=== PATIENT | male | born 1995 | race Caucasian/White ===

== ENCOUNTER 2017-01-07 11:50 | Emergency (ER) | payer OTHER ==
--- NOTE | ~2017-01-07 | ER ---
PATIENT'S NAME: VENITA HEIN [facility] AGE: 21 Y [address] ROOM: [place] [address] LOCATION: [facility] ADMIT DATE: 01/07/2017 ER/Outpatient Report DISCHARGE DATE: 01/07/2017 FAMILY PHYSICIAN: Bogdan Wade MD ATTENDING PHYSICIAN: Phuc Arvizu Time of Arrival: 1150 hours. Time of Evaluation: 1150 hours. CHIEF COMPLAINT: Fall. HISTORY OF PRESENT ILLNESS: The patient is a 21-year-old male, who presents to the emergency department today with a chief complaint of fall. He reports it occurred prior to arrival at [place]. The patient was transferred from [place] for higher level of care. The patient slipped off a trailer and dislocated and fractured his ankle. He is sent here for reduction and further care. Per EMS, the patient has received 350 mcg of fentanyl as well as 10 mg of Valium IV. He does report it is 10/10 in severity. Pain is sharp. PAST MEDICAL HISTORY: Obstructive sleep apnea, GERD. PAST SURGICAL HISTORY: None. SOCIAL HISTORY: The patient denies any tobacco, alcohol, or illicit drug use. ALLERGIES: NO KNOWN DRUG ALLERGIES. MEDICATIONS: Acid reflux medication. REVIEW OF SYSTEMS: All systems are reviewed by myself and are negative with the exception of those discussed in the HPI and past medical history. PHYSICAL EXAMINATION: VITAL SIGNS: Temperature 99.4, blood pressure 133/64, pulse 86, oxygen saturation 100% on room air. GENERAL: The patient is a 21-year-old male, who appears his stated age, in mild to moderate acute distress. PATIENT'S NAME: VENITA HEIN [facility] AGE: 21 Y [address] ROOM: [place], [place] [address] LOCATION: [facility] ADMIT DATE: 01/07/2017 ER/Outpatient Report DISCHARGE DATE: 01/07/2017 FAMILY PHYSICIAN: Bogdan Wade MD ATTENDING PHYSICIAN: Phuc Avrizu HEENT: Head: Normocephalic, atraumatic. Pupils are equal, round, and reactive to light. Nares are patent bilaterally. Oropharynx is clear. NECK: Supple. There is no midline tenderness to palpation. CARDIOVASCULAR: Regular rate and rhythm. No murmurs, rubs, or gallops. LUNGS: Clear to auscultation bilaterally. No wheezes, rales, or rhonchi. ABDOMEN: Soft, nontender, and nondistended. No rebound, rigidity, or guarding. MUSCULOSKELETAL: The patient moves all 4 extremities. He does have obvious deformity noted to the right ankle. He does have a 2/4 DP pulse on the right. He has 1/4 posterior tibial on the right ankle. SKIN: Warm and dry. LABORATORY DATA AND X-RAYS: X-ray is reviewed from outlying facility. It does show a fibular fracture with ankle dislocation of the right. Post reduction films are obtained and reviewed by myself. It does show reduction of the ankle dislocation with a fracture through the lateral malleolus and posterior malleolus. The medial malleolus appears without fracture. There is widening at the ankle mortise on the medial aspect. IMPRESSION: 1. Acute closed right bimalleolar fracture dislocation, status post reduction. 2. Initial visit. EMERGENCY DEPARTMENT COURSE: The patient was brought back to the examination room. Seen and evaluated by myself. An IV had been established prior to arrival. Anesthesia was contacted and provided sedation with propofol. Prior to that, risks and benefits had been discussed with the patient. His questions were answered. This was performed by myself. The sedation was performed. The ankle was reduced with accentuation of the fracture and longitudinal traction and audible pop was noted. The alignment was restored. The patient had 2/4 pulses DP and PT. Cap refill is less than 2 seconds. A stirrup and posterior splint were applied by myself. This was well padded. The patient's cap refill remained less than 2 seconds after application. His pain was significantly improved after reduction. Post reduction films were ordered, and I have reviewed these films. I have discussed results with the patient. I have contacted Dr. Crews, the orthopedic surgeon on-call for trauma. He has reviewed the films. He will see the patient in his clinic now to schedule surgery sometime this week. I have written a prescription for [place] with sedation warning, dispensing #20. The patient's questions are answered. His mother is at the bedside. Her questions are answered. They are without further questions at this time. PATIENT'S NAME: VENITA HEIN [facility] AGE: 21 Y [address] ROOM: [place], [place] [address] LOCATION: [facility] ADMIT DATE: 01/07/2017 ER/Outpatient Report DISCHARGE DATE: 01/07/2017 FAMILY PHYSICIAN: Bogdan Wade MD ATTENDING PHYSICIAN: Phuc Arvizu DISPOSITION: The patient is discharged to home in good condition with instructions and will proceed directly to Dr. Crews' office. DO ERICK HOOD/srinivasa /[id number] d: 01/07/17 2119 t: 01/08/17 0758, OUTPATIENT REPORT
[2017-01-08] MEDS ORDERED: PRILOSEC20 MG PO (13:56)
[2017-01-08] MEDS ORDERED: HYDROCODON-ACE1 EAC2 PO (13:57)
[2017-01-08] MEDS ORDERED: ZOFRAN8 M1 PO (14:05)
[2017-01-08] MEDS ORDERED: PERCOCET 5-3251 EACH PO (14:07)
== END 2017-01-07 13:19 | disposition disaster alternative care site (69) ==
LOC: EDBD 11:50 → GACC 11:50
PROC: 0QSJXZZ Reposition Right Fibula, External Approach (ICD-10-PCS; principal; 2017-01-07)
DX: S82.841A Displaced bimalleolar fracture of right lower leg, initial encounter for closed fracture (principal); W01.0XXA Fall on same level from slipping, tripping and stumbling without subsequent striking against object, initial encounter
CPT/HCPCS: J7030

== ENCOUNTER 2017-01-09 07:49 | Day surgery (SDC) | payer OTHER ==
[~2017-01-09] VITALS: Ht 180.3 cm; Wt 116.8 kg
--- NOTE | ~2017-01-09 | OR ---
PATIENT'S NAME: VENITA HEIN [facility] AGE: 21 Y [address] ROOM: [place] [address] LOCATION: [facility] ADMIT DATE: 01/09/2017 OR/Procedure Report DISCHARGE DATE: 01/09/2017 FAMILY PHYSICIAN: Bogdan Wade MD ATTENDING PHYSICIAN: Berto Crews SURGEON: Berto Crews MD CHEMICAL INSTRUMENTATION OFFICER: Catracho Plasencia PA-C. DATE OF PROCEDURE: 01/09/2017 PREOPERATIVE DIAGNOSIS: Right trimalleolar ankle fracture dislocation with syndesmosis disruption. POSTOPERATIVE DIAGNOSIS: Right trimalleolar ankle fracture dislocation with syndesmosis disruption. PROCEDURE: 1. Open reduction and internal fixation of right trimalleolar fracture of the ankle. 2. Open reduction and internal fixation of right syndesmosis. 3. Use of intraoperative fluoroscopy, less than 1 hour. ANESTHESIA: General endotracheal anesthesia and peripheral nerve block. FLUIDS: See Anesthesia report. EBL: Minimal. TOURNIQUET: Right proximal thigh, 300 mmHg. SPECIMEN: None. COMPLICATIONS: None. DISPOSITION: Stable in PACU. COUNTS: All counts correct. IMPLANTS: Synthes right fibular periarticular locking plate and screws and Arthrex syndesmosis TightRope fixation. INDICATIONS: Mr. Hein is a pleasant 21-year-old gentleman who underwent the noted procedures above. The risks, benefits, and alternatives of pursuing a surgical intervention were discussed with the patient in detail. I marked the right lower extremity indicating the correct surgical site. Anesthesia was consulted for their perioperative evaluation of the patient. PATIENT'S NAME: VENITA HEIN [facility] AGE: 21 Y [address] ROOM: [place] [address] LOCATION: [facility] ADMIT DATE: 01/09/2017 OR/Procedure Report DISCHARGE DATE: 01/09/2017 FAMILY PHYSICIAN: Bogdan Wade MD ATTENDING PHYSICIAN: Berto Crews OPERATIVE REPORT IN DETAIL: The patient was taken from the holding area to the operating room. A time-out was performed. General endotracheal anesthesia was administered. The patient was positioned supine on the operating room table, and a nonsterile tourniquet was placed on the right proximal thigh over Webril and U-drapes placed beneath it. A bone foam was placed under the leg with a bump under the hip. The right lower extremity was then prepped and draped in a sterile fashion. I turned my attention to the ankle. There was ecchymosis present and it was subluxated laterally. An Esmarch was used to exsanguinate the limb, and the tourniquet was inflated to 250 mmHg. I began by introducing intraoperative fluoroscopy. I began with a lateral incision through skin and subcutaneous tissue. I identified the fibula in the posterior malleolus. The fibula fracture was oblique, shortened, and there was evidence of syndesmosis disruption. With my PA holding traction on the ankle, I used [id number]-[id number] clamps to reduce the posterior malleolus of the distal tibia and distal fibula. I drilled for a 3.5 mm lag screw to address the fibula. I placed the screw and confirmed its position fluoroscopically. I then selected a plate, provisionally pinned it in place, and began with a compression screw in the distal aspect of the plate to achieve bony compression of the plate to achieve compression of the plate to the bone. I then used locking screws in the lateral malleolus to provide additional points of distal fixation. I then drilled for the screws proximally in the shaft to achieve proximal fixation of the fracture site. Posterior malleolus of the tibia was reduced. With the fibula out to length, the mortise was reduced, though there was still medial joint space widening consistent with deltoid ligament disruption and syndesmosis disruption. Then with my dermatology physician assistant dorsiflexing the foot and with a clamp at the medial aspect of the ankle and lateral aspect of the ankle, I drilled for a syndesmotic TightRope. The button was passed, flipped, and then tensioned appropriately to restore the syndesmosis relationship. There was no longer any medial joint space narrowing. I confirmed with an external rotation stress test, the syndesmosis was secure. I confirmed in the AP, oblique, and lateral projections of the reduction of the fibula, syndesmosis, and posterior malleolus of the distal tibia. The wound was then copiously irrigated with a normal sterile saline solution. It was closed in layers beginning with 2-0 Vicryl followed by 3-0 Vicryl and chelita to approximate the skin. Sterile dressings were then placed in the form Xeroform, followed by 4x4 and Webril. The tourniquet was then let down, and the toes reperfused. The patient was then placed into a well-padded short- leg splint at the ankle in neutral dorsiflexion. The patient was then transferred from the operating room table onto the stretcher and extubated, he was brought to the recovery room in stable PATIENT'S NAME: VENITA HEIN [facility] AGE: 21 Y [address] ROOM: [place], [place] [address] LOCATION: [facility] ADMIT DATE: 01/09/2017 OR/Procedure Report DISCHARGE DATE: 01/09/2017 FAMILY PHYSICIAN: Bogdan Wade MD ATTENDING PHYSICIAN: Berto Crews condition. There were no intraoperative complications noted. Of note, my PA, Catracho Plasencia PA-C, played an integral role in the intraoperative care of this patient. This included preoperative positioning, intraoperative expert retraction, and closing and splinting functions. IMPRESSION: The patient is status post noted procedure above. PLAN: The patient will be nonweightbearing on the right lower extremity. I have encouraged to rest, ice, and elevate the extremity going forward. Postoperative pain control will be in the form of Percocet and IV morphine for pain. Aspirin will be prescribed for DVT prophylaxis. The patient will be discharged to home from the PACU provided he meets PACU discharge criteria. I will continue to monitor the patient closely postoperatively. He will follow up in my office in 2 weeks for his 1st postoperative visit. MD QI BRODERICK/rushl /[id number] d: 01/09/171950 t: 01/10/17823, OPERATIVE SUMMARY
[~2017-01-09 07:49] MED LIST: HYDROCODON-ACE1 EAC2 PO; PERCOCET 5-3251 EACH PO; PRILOSEC20 MG PO; ZOFRAN8 M1 PO
[2017-01-09 08:49] LABS: BASOPHIL % 0.3 %; EOSINOPHIL # 0.1 K/uL (0.0-0.5); EOSINOPHIL % 0.9 %; HEMATOCRIT 41.2 % (37.0-53.0); HEMOGLOBIN 14.3 g/dL (12.0-17.0); IMMATURE GRANULOCYTE % 0.2 %; LYMPHOCYTE % 23.3 %; MCH 29.6 pg (27.0-34.0); MCHC 34.7 gm/dL (32.0-36.5); MCV 85.3 fl (83.0-98.0); MONOCYTE # 0.7 K/uL (0.0-1.0); MONOCYTE % 7.7 %; MPV 10.1 fl (9.4-12.4); NEUTROPHIL # (ANC) 5.9 K/uL (1.4-9.0); NEUTROPHIL % 67.6 %; NRBC % 0 /100WBC (0-0.00); PLATELET COUNT 246 K/uL (150-450); RBC 4.83 M/uL (4.00-6.00); RDW-CV 12.5 % (11.9-14.6); WBC 8.7 K/uL (4.0-11.0)
[2017-01-09] MEDS ORDERED: ASPIRIN325 MG PO (15:18)
== END 2017-01-09 16:05 | disposition disaster alternative care site (69) ==
LOC: GSDC 07:49 → EDBD 13:00 → GSDC 16:05
PROVIDERS: Orthopaedic Surgery Adult Reconstructive Orthopaedic Surgery
PROC: 0QSG04Z Reposition Right Tibia with Internal Fixation Device, Open Approach (ICD-10-PCS; principal; 2017-01-09)
DX: S82.851A Displaced trimalleolar fracture of right lower leg, initial encounter for closed fracture (principal); S93.431A Sprain of tibiofibular ligament of right ankle, initial encounter; W10.2XXA Fall (on)(from) incline, initial encounter; Y93.89 Activity, other specified
CPT/HCPCS: C1713; J0690; J2001; J2250; J2405; J2550; J3010; J7120

== ENCOUNTER 2017-01-19 23:25 | Emergency (ER) | payer OTHER ==
--- NOTE | ~2017-01-19 | CON ---
PATIENT'S NAME: VENITA HEIN [facility] AGE: 21 Y [address] ROOM: [place], [place] [address] LOCATION: [facility] ADMIT DATE: 01/19/2017 Consultation DISCHARGE DATE: 01/19/2017 FAMILY PHYSICIAN: Bogdan Wade MD ATTENDING PHYSICIAN: Phuc Arvizu DATE OF CONSULTATION: 01/19/2017 HISTORY OF PRESENT ILLNESS: Mr. Hein is a 21-year-old male, who underwent open reduction and internal fixation of a right ankle fracture with Dr. Crews approximately 10 days ago. He called me this evening to report that he had been experiencing progressive discomfort in his right ankle. He expresses concern that the right ankle "feels like something shifted in there last night." He denies any form of trauma. The increased discomfort has been evolving over the last 24 hours. He states the splint feels uncomfortable. He denies numbness or paresthesias. Analgesia has been adequate until the last 24 hours. He denies fevers or chills. PHYSICAL EXAMINATION: GENERAL: He is in a posterior splint with a sugar-tong augmentation. He is alert and oriented and in no distress. EXTREMITIES: There is good capillary refill at the toes. There is no swelling or discoloration of the toes. The splint is removed. There is a scant amount of dry sanguinous drainage on the gauze dressing at the lateral ankle. There is mild swelling. There is no erythema, fluctuance, or malodor. There is no deformity. There is no evidence of skin breakdown or impending skin breakdown circumferentially at the calf, foot, or heel. IMPRESSION: No evidence of wound infection. PLAN: A new, well-padded, well-molded posterior short-leg splint with a sugar-tong (Stirrup). Augmentation was applied. The patient expressed a sense of significant relief. I have recommended that he maximize elevation and continue to avoid weightbearing. He is already scheduled to follow up with Dr. Crews next week. I have asked him to contact me if there is any ongoing trend of increased discomfort and/or any other questions, concerns, or side effects. PATIENT'S NAME: VENITA HEIN [facility] AGE: 21 Y [address] ROOM: [place] [address] LOCATION: ED ADMIT DATE: 01/19/2017 Consultation DISCHARGE DATE: 01/19/2017 FAMILY PHYSICIAN: Bogdan Wade MD ATTENDING PHYSICIAN: Phuc Arvizu MD JMW/srinivasa /[id number] CC: Berto Crews MD d: 01/20/17 0914 t: 01/26/17 1202, CONSULTATION REPORT
--- NOTE | ~2017-01-19 | ER ---
PATIENT'S NAME: VENITA HEIN [facility] AGE: 21 Y [address] ROOM: [place] [address] LOCATION: [facility] ADMIT DATE: 01/19/2017 ER/Outpatient Report DISCHARGE DATE: 01/19/2017 FAMILY PHYSICIAN: Bogdan Wade MD ATTENDING PHYSICIAN: Nga Arvizu Time of Arrival: 2325 hours. Time of Evaluation: 2335 hours. CHIEF COMPLAINT: Cast irritation. HISTORY OF PRESENT ILLNESS: The patient is a 21-year-old male, who presents to the emergency department with a chief complaint of cast irritation. He has had increased pain there. The patient was seen and evaluated here in the emergency department on January 07, 2017. He had an ankle fracture and dislocation, underwent operative repair by Dr. Crews on the 09 of January. He had discussed increased pain with Dr. Plasencia and was sent here. The patient denies any chest pain or shortness of breath. No fevers. He has been having some sweats at night ever since the surgery. Denies any other chills. No nausea or vomiting. No diarrhea or constipation. No cough. PAST MEDICAL HISTORY: None. PAST SURGICAL HISTORY: Right ankle. SOCIAL HISTORY: The patient denies any tobacco, alcohol, or illicit drug use. ALLERGIES: NO KNOWN DRUG ALLERGIES. MEDICATIONS: Please see list. PRIMARY CARE DOCTOR: None reported. ORTHOPEDIC SURGEON: Berto Crews M.D. REVIEW OF SYSTEMS: PATIENT'S NAME: VENITA HEIN [facility] AGE: 21 Y [address] ROOM: [place] [address] LOCATION: [facility] ADMIT DATE: 01/19/2017 ER/Outpatient Report DISCHARGE DATE: 01/19/2017 FAMILY PHYSICIAN: Bogdan Wade MD ATTENDING PHYSICIAN: Nga Arvizu All systems are reviewed by myself and negative with the exception of those discussed in the HPI and past medical history. PHYSICAL EXAMINATION: HEENT: Blood pressure 159/89, pulse 133, respiratory rate 18, temperature 98.3, and oxygen saturation 97% on room air. GENERAL: The patient is a 21-year-old male, appears as stated age, in no acute distress at this time. HEENT: Head normocephalic and atraumatic. Pupils are equal, round, and reactive to light. NECK: Supple. There is no nuchal rigidity. CARDIOVASCULAR: Tachycardic. LUNGS: Clear to auscultation bilaterally. No wheezes, rales, or rhonchi. ABDOMEN: Soft, nontender, and nondistended. No rebound, rigidity, or guarding. MUSCULOSKELETAL: The patient does have a splint in place in the right lower extremity. SKIN: Surgical incision site noted at the right ankle. No other rashes or lesions are noted. LABORATORY DATA AND X-RAYS: None. IMPRESSION: 1. Splint replacement. 2. Initial visit. EMERGENCY DEPARTMENT COURSE: The patient was brought back to the examination room. Seen and evaluated by Dr. Plasencia. Dr. Plasencia has seen and evaluated the patient's leg and has removed the patient's splint of the right lower extremity. He has replaced it with a new splint. Also saw and evaluated the patient as described above. The patient will follow up with Dr. Crews on Saturday. I have discussed return to care instructions including worsening symptoms or any other concerns to return to the emergency department as soon as possible. The patient is agreeable. DISPOSITION: The patient discharged home in good condition. NGA ARVIZU DO PATIENT'S NAME: VENITA HEIN [facility] AGE: 21 Y [address] ROOM: [place] [address] LOCATION: [facility] ADMIT DATE: 01/19/2017 ER/Outpatient Report DISCHARGE DATE: 01/19/2017 FAMILY PHYSICIAN: Bogdan Wade MD ATTENDING PHYSICIAN: Nga Arvizu/srinivasa /[id number] d: 01/20/17125 t: 01/20/17 1846, OUTPATIENT REPORT
[~2017-01-19 23:25] MED LIST changes: +ASPIRIN325 MG PO
== END 2017-01-19 23:54 | disposition disaster alternative care site (69) ==
LOC: GMED 23:25
PROC: 2W3QX1Z Immobilization of Right Lower Leg using Splint (ICD-10-PCS; principal; 2017-01-19)
DX: S82.891D Other fracture of right lower leg, subsequent encounter for closed fracture with routine healing (principal); X58.XXXD Exposure to other specified factors, subsequent encounter